=== PATIENT | male | born 1980 | race Hispanic/Latino ===

== ENCOUNTER 2017-08-07 06:03 | Observation (INO) | payer OTHER ==
[2017-08-07 06:03] VITALS: BMI 34.0
[2017-08-07] MEDS ORDERED: Sodium Chloride 0.9% 1,000 ML IV STA (06:56)
--- NOTE | 2017-08-07 07:30 | ED PDOC ---
HPI: Abdomen Time Seen by Provider: 08/07/17 06:39 Chief Complaint (Nursing): Abdominal Pain Chief Complaint (Provider): Abdominal Pain History Per: Patient History/Exam Limitations: no limitations Onset/Duration Of Symptoms: Hrs (4) Current Symptoms Are (Timing): Still Present Location Of Pain/Discomfort: Epigastric Quality Of Discomfort: "Pain" Associated Symptoms: Vomiting (2 episodes). denies: Fever, Other (bloody stool) Exacerbating Factors: Movement, Deep Breaths Additional Complaint(s): 37 year old male presents to the ED complaining of severe epigastric pain onset 4 hours ago. Reports pain is constant and non-radiating. It worsens with movement or taking deep breaths. Patient had 2 episodes of non-bilious and non- bloody vomiting. States he had barbeque last night and denies any alcohol. Also denies bloody stool or fever. PMD: None Past Medical History Reviewed: Historical Data, Nursing Documentation, Vital Signs Vital Signs: Last Vital Signs Temp 97.7 F 08/07/17 16:27 Pulse 63 08/07/17 16:27 Resp 18 08/07/17 16:27 BP 127/74 08/07/17 16:27 Pulse Ox 97 08/08/17 18:01 - Medical History PMH: No Chronic Diseases Denies: Chronic Kidney Disease - Surgical History Surgical History: Appendectomy - Family History Family History: States: Unknown Family Hx - Social History Current smoker - smoking cessation education provided: No Alcohol: None Drugs: Denies - Home Medications Home Medications: Ambulatory Orders Medication Instructions Recorded No Known Home Med 08/07/17 - Allergies Allergies/Adverse Reactions: Allergies Allergy/AdvReac Type Severity Reaction Status Date / Time No Known Allergies Allergy Verified 08/07/17 06:11 Review of Systems ROS Statement: Except As Marked, All Systems Reviewed And Found Negative Constitutional: Negative for: Fever Gastrointestinal: Positive for: Vomiting ( 2 episodes of NBNB), Abdominal Pain. Negative for: Other (bloody stool) Physical Exam - Reviewed Nursing Documentation Reviewed: Yes Vital Signs Reviewed: Yes - Physical Exam Appears: Positive for: Non-toxic, Uncomfortable Head Exam: Positive for: ATRAUMATIC, NORMAL INSPECTION, NORMOCEPHALIC Skin: Positive for: Normal Color, Warm, Dry Eye Exam: Positive for: EOMI, Normal appearance, PERRL ENT: Positive for: Normal ENT Inspection Neck: Positive for: Normal, Painless ROM, Supple. Negative for: Decreased ROM Cardiovascular/Chest: Positive for: Regular Rate, Rhythm. Negative for: Murmur Respiratory: Positive for: Normal Breath Sounds. Negative for: Decreased Breath Sounds, Accessory Muscle Use, Respiratory Distress Gastrointestinal/Abdominal: Positive for: Soft, Tenderness (RUQ and epigastric) Back: Positive for: Normal Inspection. Negative for: L CVA Tenderness, R CVA Tenderness Extremity: Positive for: Normal ROM. Negative for: Tenderness, Pedal Edema, Deformity Neurologic/Psych: Positive for: Alert, Oriented (x3). Negative for: Motor/ Sensory Deficits - Laboratory Results Result Diagrams: 08/07/17 07:25 08/07/17 07:25 - ECG O2 Sat by Pulse Oximetry: 97 (RA) Pulse Ox Interpretation: Normal Medical Decision Making Medical Decision Making: Time: 655 Initial Impression: Abdominal Pain Differential Diagnosis includes but is not limited to: acute cholecystitis, small bowel obstruction, gastitis, pancreatitis Initial Plan: --EKG --CMP --Lipase --ED Urine dipstick --CBC w/ differential --Morphine 4mg --Normal Saline 1000 mls/ hr --Zofran 4mg --Abdomen limited US --Reevaluation Time: 07 Patient signed out by me to Dr. Cheng pending labs and ultrasound. Scribe Attestation: Documented by Sarah Sanz, acting as a scribe for Lowell Lao MD Provider Scribe Attestation: All medical record entries made by the Scribe were at my direction and personally dictated by me. I have reviewed the chart and agree that the record accurately reflects my personal performance of the history, physical exam, medical decision making, and the department course for this patient. I have also personally directed, reviewed, and agree with the discharge instructions and disposition. Disposition - Clinical Impression Clinical Impression: Abdominal pain - Patient ED Disposition Is Patient to be Admitted: Transfer of Care - Disposition Disposition: Transfer of Care Disposition Time: 07:00 Condition: STABLE Patient Signed Over To: Missy Cheng Handoff Comments: pending labs and ultrasound
--- NOTE | 2017-08-07 07:55 | ED PDOC ---
- Laboratory Results Result Diagrams: 08/07/17 07:25 08/07/17 07:25 - ECG O2 Sat by Pulse Oximetry: 97 (RA) Pulse Ox Interpretation: Normal Medical Decision Making Medical Decision Making: Time: 699 Patient signed out to me by Dr. Lao pending labs and ultrasound. Time: 948 FINDINGS: LIVER: Measures 16.6 cm in length. Increased echogenicity of the liver parenchyma. No mass. No intrahepatic bile duct dilatation. GALLBLADDER: Calcified cholelithiasis with gallbladder wall thickening/edema. Small echogenic foci adherent to the gallbladder wall. Sonographic Gan's sign was not elicited. COMMON BILE DUCT: Measures 5 mm. No stones. No dilatation. PANCREAS: Limited evaluation due to overlying bowel gas. RIGHT KIDNEY: Measures 10.8 x 5.6 x 4.8 cm in length. Normal echogenicity. No calculus, mass, or hydronephrosis. AORTA: No aneurysmal dilatation. IVC: Unremarkable. OTHER FINDINGS: None . IMPRESSION: Calcified cholelithiasis with gallbladder wall thickening/edema. Small echogenic foci adherent to the gallbladder wall may represent small polyps trauma tumefactive sludge or non shadowing calculi. Sonographic Gan's sign was not elicited. Findings are equivocal for acute cholecystitis. Nuclear medicine HIDA scan can be obtained to further evaluate patency of the cystic duct as clinically warranted. Hepatic steatosis. Scribe Attestation: Documented by Sarah Sanz, acting as a scribe for Missy Cheng MD Provider Scribe Attestation: All medical record entries made by the Scribe were at my direction and personally dictated by me. I have reviewed the chart and agree that the record accurately reflects my personal performance of the history, physical exam, medical decision making, and the department course for this patient. I have also personally directed, reviewed, and agree with the discharge instructions and disposition. Disposition - Disposition Condition: STABLE Forms: [employer])
[2017-08-07 08:10] LABS: BASO % 0.5 % (0.0-2.0); EOS # 0.1 K/uL (0.0-0.7); EOS % 1.4 % (0.0-4.0); HEMOGLOBIN 15.7 g/dL (12.0-18.0); LYMPH # 1.9 K/uL (1.0-4.3); LYMPH % 20.3 % (20.0-40.0); MEAN CELL VOLUME 86.2 fl (80.0-94.0); MEAN CORPUSCULAR HEMOGLOBIN 29.1 pg (27.0-31.0); MEAN CORPUSCULAR HGB CONC 33.8 g/dL (33.0-37.0); MEAN PLATELET VOLUME 10.7 fl (7.2-11.7); MONO # 0.6 K/uL (0.0-0.8); MONO % 6.8 % (0.0-10.0); NEUT # 6.6 K/uL (1.8-7.0); NRBC % 0.1 % (0.0-0.0); RBC 5.39 Mil/uL (4.40-5.90); RED CELL DISTRIBUTION WIDTH 13.9 % (11.5-14.5); WHITE BLOOD COUNT 9.3 K/uL (4.8-10.8)
[2017-08-07 08:30] LABS: ALB/GLOB RATIO 1.3 (1.0-2.1); ALBUMIN 4.1 g/dL (3.5-5.0); ALT/SGPT 51 U/L (21-72); AST/SGOT 27 U/L (17-59); BLOOD UREA NITROGEN 29 mg/dl (9-20); CALCIUM 9.3 mg/dL (8.4-10.2); GFR AFRICAN-AMERICAN > 60; GFR NON-AFRICAN AMERICAN > 60; LIPASE 138 U/L (23-300)
--- NOTE | 2017-08-07 09:51 | US ---
HISTORY: RUQ and epigastric pain COMPARISON: None. TECHNIQUE: Sonographic evaluation of the right upper quadrant of the abdomen. FINDINGS: LIVER: Measures 16.6 cm in length. Increased echogenicity of the liver parenchyma. No mass. No intrahepatic bile duct dilatation. GALLBLADDER: Calcified cholelithiasis with gallbladder wall thickening/edema. Small echogenic foci adherent to the gallbladder wall. Sonographic Gan's sign was not elicited. COMMON BILE DUCT: Measures 5 mm. No stones. No dilatation. PANCREAS: Limited evaluation due to overlying bowel gas. RIGHT KIDNEY: Measures 10.8 x 5.6 x 4.8 cm in length. Normal echogenicity. No calculus, mass, or hydronephrosis. AORTA: No aneurysmal dilatation. IVC: Unremarkable. OTHER FINDINGS: None . IMPRESSION: Calcified cholelithiasis with gallbladder wall thickening/edema. Small echogenic foci adherent to the gallbladder wall may represent small polyps trauma tumefactive sludge or non shadowing calculi. Sonographic Gan's sign was not elicited. Findings are equivocal for acute cholecystitis. Nuclear medicine HIDA scan can be obtained to further evaluate patency of the cystic duct as clinically warranted. Hepatic steatosis.
--- NOTE | 2017-08-07 10:20 | CP.PCM.CON ---
<Jayy Fraire - Last Filed: 08/07/17 10:56> History of Present Illness - History of Present Illness History of Present Illness: General Surgery Consult Note for Dr. Tolentino Reason for Consult: Cholelithiasis, RUQ abd pain 37M with no siginificant PMH present to [facility] for complaint of RUQ abdominal pain. Patient was seen and evaluated in the ED. Patient states that pain began around 11 pm last night while at home. He reports sudden onset and that pain was not associated with eating. Patient ate earlier in the day. Last night, he states that he had 2 episodes of nausea/vomiting with NBNB emesis. Patient reports to never having pain like this in the past. He rates pain as severe. He describes pain as constant and sharp in RUQ radiating to epigastrium. Eating/ drinking aggravates symptoms while nothing alleviates them. Denies sick contacts or recent illness. Denies fever/chills, chest pain, SOB, palpitations, diarrhea, incontinence, urinary symptoms. PMH: denies Meds: denies Allergy: NKDA PSH: lipoma removal - right flank, appendectomy FH: non-ontributory Social: denies tobacco/EtOH/illicit drug use Review of Systems - Review of Systems All systems: reviewed and no additional remarkable complaints except (as per HPI ) Past Patient History - Infectious Disease Hx of Infectious Diseases: None - Tetanus Immunizations Tetanus Immunization: Unknown - Past Medical History & Family History Past Medical History?: No - Past Social History Alcohol: None Drugs: Denies - CARDIAC Hx Cardiac Disorders: No - PULMONARY Hx Respiratory Disorders: No - NEUROLOGICAL Hx Neurological Disorder: No - HEENT Hx HEENT Problems: No - RENAL Hx Chronic Kidney Disease: No - ENDOCRINE/METABOLIC Hx Endocrine Disorders: No - HEMATOLOGICAL/ONCOLOGICAL Hx Blood Disorders: No - INTEGUMENTARY Hx Dermatological Problems: No - MUSCULOSKELETAL/RHEUMATOLOGICAL Hx Musculoskeletal Disorders: No - GASTROINTESTINAL Hx Gastrointestinal Disorders: No - GENITOURINARY/GYNECOLOGICAL Hx Genitourinary Disorders: No - PSYCHIATRIC Hx Emotional Abuse: No Hx Physical Abuse: No Hx Substance Use: No - SURGICAL HISTORY Hx Appendectomy: Yes - ANESTHESIA Hx Anesthesia: Yes Hx Malignant Hyperthermia: No Meds Allergies/Adverse Reactions: Allergies Allergy/AdvReac Type Severity Reaction Status Date / Time No Known Allergies Allergy Verified 08/07/17 06:11 Physical Exam - Constitutional Appears: Non-toxic, No Acute Distress - Head Exam Head Exam: ATRAUMATIC, NORMOCEPHALIC - Eye Exam Eye Exam: EOMI, Normal appearance Pupil Exam: PERRL - ENT Exam ENT Exam: Mucous Membranes Moist - Neck Exam Neck exam: Positive for: Full Rom - Respiratory Exam Respiratory Exam: NORMAL BREATHING PATTERN - Cardiovascular Exam Cardiovascular Exam: REGULAR RHYTHM - GI/Abdominal Exam GI & Abdominal Exam: Normal Bowel Sounds, Soft, Tenderness (RUQ). absent: Distended, Firm, Guarding, Hernia, Mass, Rebound, Rigid Additional comments: (-) gan's sign - Extremities Exam Extremities exam: Positive for: normal capillary refill, pedal pulses present. Negative for: calf tenderness - Back Exam Back exam: absent: CVA tenderness (L), CVA tenderness (R) - Neurological Exam Neurological exam: Alert, CN II-XII Intact, Oriented x3 - Psychiatric Exam Psychiatric exam: Normal Affect, Normal Mood - Skin Skin Exam: Dry, Intact, Normal Color, Warm Results - Vital Signs Recent Vital Signs: Last Vital Signs Temp 98.3 F 08/07/17 06:11 Pulse 76 08/07/17 06:11 Resp 18 08/07/17 06:11 BP 154/96 H 08/07/17 06:11 Pulse Ox 97 08/07/17 10:04 - Labs Result Diagrams: 08/07/17 07:25 08/07/17 07:25 Labs: Laboratory Results - last 24 hr 08/07/17 08/07/17 07:25 07:25 WBC 9.3 RBC 5.39 Hgb 15.7 Hct 46.5 MCV 86.2 MCH 29.1 MCHC 33.8 RDW 13.9 Plt Count 176 MPV 10.7 Neut % (Auto) 71.0 Lymph % (Auto) 20.3 Clinch % (Auto) 6.8 Eos % (Auto) 1.4 Baso % (Auto) 0.5 Neut # (Auto) 6.6 Lymph # (Auto) 1.9 Clinch # (Auto) 0.6 Eos # (Auto) 0.1 Baso # (Auto) 0.0 Sodium 147 Potassium 4.2 Chloride 104 Carbon Dioxide 28 Anion Gap 19 BUN 29 H Creatinine 1.2 Est GFR ( Amer) > 60 Est GFR (Non-Af Amer) > 60 Random Glucose 109 Calcium 9.3 Total Bilirubin 0.6 AST 27 ALT 51 Alkaline Phosphatase 103 Total Protein 7.4 Albumin 4.1 Globulin 3.3 Albumin/Globulin Ratio 1.3 Lipase 138 Assessment & Plan - Assessment and Plan (Free Text) Assessment: 37 M with RUQ abdominal pain found to have choelithiasis on ABUS Plan: -NPO -IV fluids -Analgesics/Anti-emetics PRN -No leukocytosis or fevers so IV antibiotics not needed at this time -f/u HIDA scan -Discussed with Dr. Rajan Fraire PGY1 - Date & Time Date: 08/07/17 Time: 10:30 <Delgado Tolentino - Last Filed: 08/07/17 17:20> History of Present Illness - History of Present Illness History of Present Illness: Patient was seen and examined at the bedside. Agree with resident's note above. Currently denies any abdominal pain, no nausea, no vomiting, states that is hungry and wants to go home. Meds - Medications Medications: Current Medications Lactated Ringer's (Lactated Ringer's) 1,000 mls @ 150 mls/hr IV .[id number] [facility] Last Admin: 08/07/17 10:45 Dose: 150 mls/hr Morphine Sulfate (Morphine) 4 mg IVP Q6 PRN PRN Reason: Pain, severe (8-10) Ondansetron HCl (Zofran Inj) 4 mg IVP Q6 PRN PRN Reason: Nausea/Vomiting Pantoprazole Sodium (Protonix Inj) 40 mg IVP DAILY [facility] Last Admin: 08/07/17 10:45 Dose: 40 mg Physical Exam - GI/Abdominal Exam Additional comments: soft, NT, ND, BS+, no rebound, no guarding, negative Gan's sign Results - Vital Signs Recent Vital Signs: Last Vital Signs Temp 97.7 F 08/07/17 16:27 Pulse 63 08/07/17 16:27 Resp 18 08/07/17 16:27 BP 127/74 08/07/17 16:27 Pulse Ox 97 08/07/17 16:27 - Labs Result Diagrams: 08/07/17 07:25 08/07/17 07:25 Labs: Laboratory Results - last 24 hr 08/07/17 08/07/17 07:25 07:25 WBC 9.3 RBC 5.39 Hgb 15.7 Hct 46.5 MCV 86.2 MCH 29.1 MCHC 33.8 RDW 13.9 Plt Count 176 MPV 10.7 Neut % (Auto) 71.0 Lymph % (Auto) 20.3 Clinch % (Auto) 6.8 Eos % (Auto) 1.4 Baso % (Auto) 0.5 Neut # (Auto) 6.6 Lymph # (Auto) 1.9 Clinch # (Auto) 0.6 Eos # (Auto) 0.1 Baso # (Auto) 0.0 Sodium 147 Potassium 4.2 Chloride 104 Carbon Dioxide 28 Anion Gap 19 BUN 29 H Creatinine 1.2 Est GFR ( Amer) > 60 Est GFR (Non-Af Amer) > 60 Random Glucose 109 Calcium 9.3 Total Bilirubin 0.6 AST 27 ALT 51 Alkaline Phosphatase 103 Total Protein 7.4 Albumin 4.1 Globulin 3.3 Albumin/Globulin Ratio 1.3 Lipase 138 - Imaging and Cardiology US - abdomen Status: Image reviewed by me, Report reviewed by me Assessment & Plan - Assessment and Plan (Free Text) Plan: - Start clear liquid diet - Advance to regular diet if tolerates clears - If tolerates regular diet patient is clear for discharge home from the general surgery stand point - patient will follow up with me in the office to schedule elective cholecystectomy
[2017-08-07] MEDS ORDERED: Morphine 4 MG/ML VIAL IVP PRN (10:21)
[2017-08-07] MEDS ORDERED: Lactated Ringer's 1,000 ML IV SCH (10:30)
--- NOTE | 2017-08-07 10:38 | CARD ---
APPROVED REPORT EKG Measurement Heart [id number] <Conclusion> Normal sinus rhythm Normal ECG
--- NOTE | 2017-08-07 10:46 | CP.PCM.HP ---
History of Present Illness - History of Present Illness History of Present Illness: 37 year old male no PMH presented to the ED early this morning for severe, constant, nonradiating, sharp epigastric pain, associated with 2 episodes of NBNB emesis. Patient afebrile, no WBC, abd US + for equivocal acute cholecystitis. Evaluated by Surgery team, patient to be placed on obs for HIDA scan in AM. HD stable, NAD. ROS: per hpi all other systems reviewed and negative by me. Present on Admission - Present on Admission Any Indicators Present on Admission: No Past Patient History - Infectious Disease Hx of Infectious Diseases: None - Tetanus Immunizations Tetanus Immunization: Unknown - Past Medical History & Family History Past Medical History?: No - Past Social History Alcohol: None Drugs: Denies - CARDIAC Hx Cardiac Disorders: No - PULMONARY Hx Respiratory Disorders: No - NEUROLOGICAL Hx Neurological Disorder: No - HEENT Hx HEENT Problems: No - RENAL Hx Chronic Kidney Disease: No - ENDOCRINE/METABOLIC Hx Endocrine Disorders: No - HEMATOLOGICAL/ONCOLOGICAL Hx Blood Disorders: No - INTEGUMENTARY Hx Dermatological Problems: No - MUSCULOSKELETAL/RHEUMATOLOGICAL Hx Musculoskeletal Disorders: No - GASTROINTESTINAL Hx Gastrointestinal Disorders: No - GENITOURINARY/GYNECOLOGICAL Hx Genitourinary Disorders: No - PSYCHIATRIC Hx Emotional Abuse: No Hx Physical Abuse: No Hx Substance Use: No - SURGICAL HISTORY Hx Appendectomy: Yes - ANESTHESIA Hx Anesthesia: Yes Hx Malignant Hyperthermia: No Meds Allergies/Adverse Reactions: Allergies Allergy/AdvReac Type Severity Reaction Status Date / Time No Known Allergies Allergy Verified 08/07/17 06:11 Physical Exam - Constitutional Appears: Non-toxic, No Acute Distress - Head Exam Head Exam: ATRAUMATIC, NORMOCEPHALIC - Eye Exam Eye Exam: EOMI, Normal appearance, PERRL - ENT Exam ENT Exam: Mucous Membranes Moist, Normal Exam, Normal External Ear Exam - Neck Exam Neck exam: Positive for: Full Rom, Normal Inspection - Respiratory Exam Respiratory Exam: Clear to Auscultation Bilateral, NORMAL BREATHING PATTERN - Cardiovascular Exam Cardiovascular Exam: REGULAR RHYTHM, +S1, +S2 - GI/Abdominal Exam GI & Abdominal Exam: Normal Bowel Sounds, Soft, Tenderness - Extremities Exam Extremities exam: Positive for: normal capillary refill, normal inspection - Back Exam Back exam: absent: CVA tenderness (L), CVA tenderness (R) - Neurological Exam Neurological exam: Alert, Oriented x3, Reflexes Normal - Skin Skin Exam: Dry, Normal Color, Warm Results - Vital Signs Recent Vital Signs: Last Vital Signs Temp 98.3 F 08/07/17 06:11 Pulse 76 08/07/17 06:11 Resp 18 08/07/17 06:11 BP 154/96 H 08/07/17 06:11 Pulse Ox 97 08/07/17 10:04 - Labs Result Diagrams: 08/07/17 07:25 08/07/17 07:25 Labs: Laboratory Results - last 24 hr 08/07/17 08/07/17 07:25 07:25 WBC 9.3 RBC 5.39 Hgb 15.7 Hct 46.5 MCV 86.2 MCH 29.1 MCHC 33.8 RDW 13.9 Plt Count 176 MPV 10.7 Neut % (Auto) 71.0 Lymph % (Auto) 20.3 Crowley % (Auto) 6.8 Eos % (Auto) 1.4 Baso % (Auto) 0.5 Neut # (Auto) 6.6 Lymph # (Auto) 1.9 Crowley # (Auto) 0.6 Eos # (Auto) 0.1 Baso # (Auto) 0.0 Sodium 147 Potassium 4.2 Chloride 104 Carbon Dioxide 28 Anion Gap 19 BUN 29 H Creatinine 1.2 Est GFR ( Amer) > 60 Est GFR (Non-Af Amer) > 60 Random Glucose 109 Calcium 9.3 Total Bilirubin 0.6 AST 27 ALT 51 Alkaline Phosphatase 103 Total Protein 7.4 Albumin 4.1 Globulin 3.3 Albumin/Globulin Ratio 1.3 Lipase 138 Assessment & Plan - Assessment and Plan (Free Text) Plan: 37 year old male no PMH presented to the ED early this morning for severe, constant, nonradiating, sharp epigastric pain, associated with 2 episodes of NBNB emesis. Patient afebrile, no WBC, abd US + for equivocal acute cholecystitis. Evaluated by Surgery team, patient to be placed on obs for HIDA scan in AM. HD stable, NAD. Acute Cholecystitis US ABD equivocal patient pain is improving, afebrile, no WBC NPO HIDA for tomorrow Surgery consult appreciated.
[2017-08-07 16:28] VITALS: BP 127/74; PULSE 63; RESP 18; TEMP 97.7; O2SAT 97
== END 2017-08-07 19:05 | disposition home or self-care (01) ==
LOC: H.ER 06:03 → H.ERHOLD 10:22 → H.MEDSURG1 12:18
PROVIDERS: ADMIT Student in an Organized Health Care Education/Training Program; ATTEND Student in an Organized Health Care Education/Training Program
DX: K80.00 Calculus of gallbladder with acute cholecystitis without obstruction (principal); Z90.49 Acquired absence of other specified parts of digestive tract; Z86.018 Personal history of other benign neoplasm
CPT/HCPCS: 76705; 80053; 83690; 85025; 93005; 96361; 96374; 96375; 99285; C9113; G0378; J2270; J2405; J7040; J7120